=== PATIENT | male | born 1990 | race Two or more races ===

== ENCOUNTER 2023-08-19 15:41 | Emergency (ER) | payer MEDICAID, OTHER ==
[~2023-08-19] VITALS: Ht 170.2 cm; Wt 80.3 kg
[2023-08-19] MEDS ORDERED: CEFTRIAXONE SODIUM 2 GM in D5W 5% 100 ML IV ONE (16:15)
[2023-08-19] MEDS ORDERED: TETANUS-DIPTH-ACEL PERTUSSIS 0.5ML SYR Tdap IM ONE (16:15)
[2023-08-19] MEDS ORDERED: NEOMYCIN-BACITRACIN-POLYM UNITDOSE PKG TOP OINT TOP ONE (16:15)
[2023-08-19] MEDS ORDERED: MORPHINE SULFATE 4 MG/ML SYR/VIAL IV ONE (16:15)
[2023-08-19 16:52] VITALS: PULSE 85; RESP 17; O2SAT 92
[2023-08-19 19:25] VITALS: PULSE 74; RESP 16; O2SAT 94
[2023-08-19 19:59] VITALS: TEMP 99.6; O2SAT 94
[2023-08-19] MEDS ORDERED: HYDROmorphone HCL 2 MG/ML VL/or syr IV ONE (20:00)
[2023-08-19] MEDS ORDERED: ONDANSETRON HCL 4 MG/2 ML VIAL IV ONE (20:00)
[2023-08-19 20:07] VITALS: BP 143/80; PULSE 88; RESP 16
== END 2023-08-19 22:48 ==
LOC: ER 15:41
DX: S62.308A Unspecified fracture of other metacarpal bone, initial encounter for closed fracture (principal); S61.411A Laceration without foreign body of right hand, initial encounter; X58.XXXA Exposure to other specified factors, initial encounter; Y93.89 Activity, other specified; Y92.89 Other specified places as the place of occurrence of the external cause; Y99.8 Other external cause status
CPT/HCPCS: 73110; 73130; 90471; 90715; 96365; 96375; 99285; J0696; J1170; J2270; J2405; J7060